=== PATIENT | female | born 1950 | race Caucasian/White ===

== ENCOUNTER 2018-12-30 16:36 | Emergency (ER) | payer MEDICARE ==
[~2018-12-30] VITALS: Ht 147.3 cm; Wt 68.0 kg
--- OUTSIDE RECORDS SUMMARY | 2018-12-30 16:38 | XMS REPORT | Continuity of Care Document ---
Author Author [facility] Organization [facility] Address Unknown Phone Unavailable Care Team Providers Care Flux Tube Attendant Name Role Phone [employer] Information Dianping Unavailable Unavailable Problems Problem Status Onset Date Classification Date Reported Comments Source DX: C50.911=MALIGNANT NEOPLASM OF UNSPEC Active 12/24/2018 [facility] Encounter for screening mammogram for malignant neoplasm of breast 05/14/2018 11/25/2018 [facility] SCREENINGNO PAIN,LUMPS OR DC Active 04/23/2018 [facility] M81.0=AGE-RELATED OSTEOPOROSIS WITHOUT Active 10/19/2017 [facility] Z12.31=ENCOUNTER FOR SCREENING MAMMOGRAM Active 03/14/2017 [facility] SCREENING MAMMOGRAM Active 04/03/2016 [facility] POST MENOPAUSAL Active 10/11/2015 [facility] BREAST CA Active 03/10/2015 [facility] 174.9; BREAST CA Active 04/08/2014 [facility] BREAST CANCER Active 06/09/2013 [facility] BRCA RIGHT Active 04/11/2013 [facility] Abscess of breast1 Active 11/14/2012 Problem 11/25/2018 Data migrated from [employer] on 11/28/14. [facility] BREAST MASS Active 10/30/2012 [facility] RIGHT BREAST CA / POST XRT Active 09/18/2012 [facility] POST MENOPAUSAL, OSTEOPENIA Active 08/07/2012 [facility] 174.9 Active 06/27/2012 [facility] UNK Active 06/27/2012 [facility] Malignant tumor of breast4 Active 06/12/2012 Problem 11/25/2018 Data migrated from [employer] on 11/28/14. [facility] Obesity5 Active 06/12/2012 Problem 11/25/2018 Data migrated from [employer] on 11/28/14. [facility] RIGHT BREAST CA Active 06/12/2012 [facility] RIGHT BREAST MASS Active 06/03/2012 [facility] Diabetes mellitus Active Problem 11/08/2012 [facility] Hypercholesterolemia Active Problem 11/08/2012 [facility] Hypothyroidism Active Problem 11/08/2012 [facility] lump right breast Active Problem 10/07/2014 [facility] Diabetes mellitus Active Problem 11/25/2018 [facility] Hypercholesterolemia Active Problem 10/07/2014 [facility] Hypothyroidism Active Problem 10/07/2014 [facility] Hypercholesterolemia2 Active Problem 11/25/2018 Data migrated from [employer] on 11/28/14. [facility] Hypothyroidism3 Active Problem 11/25/2018 Data migrated from [employer] on 11/28/14. [facility] Type 2 diabetes mellitus6 Active Problem 11/25/2018 Data migrated from [employer] on 11/28/14. [facility] BREAST DISORDER NOS Active [facility] OSTEOPOROSIS NOS Active [facility] MALIGN NEOPL BREAST NOS Active [facility] ASYMPT POSTMENO STATUS Active [facility] MAL CHELA BREAST-CENTRAL Active [facility] MALIGNANT NEOPLASM OF UNSP SITE OF UNSPE Active [facility] AGE-RELATED OSTEOPOROSIS W/O CURRENT PAT Active [facility] ENCNTR SCREEN MAMMOGRAM FOR MALIGNANT NE Active [facility] Medications Medication Details Route Status Patient Instructions Ordering Provider Order Date Source acetaminophen-hydrocodone 325 mg-5 mg oral tablet 1 tab, Route: PO, Drug Form: TAB, Dosing Weight 70.455, kg, Q4H, PRN Pain Score 1-3, Start date: 07/10/12 15:02:00, Duration: 30 day, Stop date: 08/09/12 15:01:00 PO No Longer Active [place] 07/10/2012 [facility] fentanyl 25 microgram, 0.5 mL, Route: IVP, Drug form: INJ, Q5Min, Dosing Weight 70.455, kg, PRN Pain Score 4-6, Start date: 07/10/12 15:02:00, Duration: 4 doses or times, Stop date: Limited # of times IVP No Longer Active [place] 07/10/2012 [facility] flumazenil 0.2 mg, 2 mL, Route: IVP, Drug form: INJ, PRN, Dosing Weight 70.455, kg, PRN Benzodiazepine Reversal, Initial dose, Start date: 07/10/12 15:02:00, Duration: 30 day, Stop date: 08/09/12 15:01:00 IVP No Longer Active [place] 07/10/2012 [facility] naloxone 0.04 mg, 0.1 mL, Route: IVP, Drug form: INJ, Q2MIN, Dosing Weight 70.455, kg, PRN Narcotic Reversal, Start date: 07/10/12 15:02:00, Duration: 8 doses or times, Stop date: Limited # of times IVP No Longer Active [place] 07/10/2012 [facility] hydromorphone 0.5 mg, 0.5 mL, Route: IVP, Drug form: SOLN, Q5Min, Dosing Weight 70.455, kg, PRN Pain Score 4-6, Start date: 07/10/12 15:02:00, Duration: 5 doses or times, Stop date: Limited # of times IVP No Longer Active [place] 07/10/2012 [facility] morphine Sulfate 2 mg, 1 mL, Route: IVP, Drug form: INJ, Q5Min, Dosing Weight 70.455, kg, PRN Pain Score 4-6, Start date: 07/10/12 15:02:00, Duration: 8 doses or times, Stop date: Limited # of times IVP No Longer Active [place] 07/10/2012 [facility] meperidine 12.5 mg, 0.25 mL, Route: IVP, Drug form: INJ, Q30Min, Dosing Weight 70.455, kg, PRN Other -See Comment, For shivering, Start date: 07/10/12 15:02:00, Duration: 2 doses or times, Stop date: Limited # of times IVP No Longer Active [place] 07/10/2012 [facility] ondansetron 4 mg, 2 mL, Route: IVP, Drug form: INJ, ONCE, Dosing Weight 70.455, kg, PRN Nausea & Vomiting, Start date: 07/10/12 15:02:00 IVP No Longer Active [place] 07/10/2012 [facility] [place] 10/325 oral tablet 1 tab, Route: PO, Drug Form: TAB, Dosing Weight 70.455, kg, Q4H, PRN Pain, Start date: 07/10/12 15:02:00, Duration: 30 day, Stop date: 08/09/12 15:01:00 PO No Longer Active [place] 07/10/2012 [facility] Ofirmev 1,000 mg, 100 mL, Route: IV, Drug form: INJ, ONCE, Dosing Weight 70.455, kg, PRN Pain, for > or=50 kg, Start date: 07/10/12 15:02:00 IV No Longer Active [place] 07/10/2012 [facility] [place] 5/325 oral tablet 1-2 tab, PO, Q4-6H, PRN, 20 tab, 0, 0, Pain, Substitution Allowed, Maintenance PO Active Rashid 07/10/2012 [facility] Lactated Ringers Injection IV 1,000 mL 1,000 mL, Rate: 25 ml/hr, Infuse over: 40 hr, Route: IV, kg, Total Volume: 1,000, Start date: 07/10/12 11:51:00, Duration: 1 day, Stop date: 07/11/12 11:50:00 IV No Longer Active [place] 07/10/2012 [facility] cefazolin 2 gm, Route: IVPB, ONCE, Dosing Weight 70.455, kg, Start date: 07/10/12 11:51:00, Duration: 1 doses or times, Stop date: 07/10/12 11:51:00 IVPB No Longer Active Rashid 07/10/2012 [facility] Vitamin B12 1000 mcg oral tablet 1,000 microgram, 1 tab, PO, Daily, 30 tab, Substitution Allowed, TAB PO Active 07/05/2012 [facility] omega-3 polyunsaturated fatty acids 1,500 mg, PO, BID, Substitution Allowed PO Active 07/05/2012 [facility] calcium calcium, 1,200 mg, PO, BID, Substitution Allowed PO Active 07/05/2012 [facility] magnesium chloride PO, Daily, Substitution Allowed PO Active 07/05/2012 [facility] Vitamin C 1,000 mg, PO, BID, Substitution Allowed PO Active 07/05/2012 [facility] gabapentin 300 mg oral capsule 300 mg, 1 cap, PO, Bedtime, prn restless leg, 90 cap, Substitution Allowedprn restless leg PO Active 07/05/2012 [facility] metFORmin 500 mg, PO, Bedtime, Substitution Allowed PO Active 07/05/2012 [facility] simvastatin 40 mg oral tablet 40 mg, 1 tab, PO, Bedtime, 30 tab, Substitution Allowed, Maintenance PO Active 07/05/2012 [facility] doxepin 50 mg oral capsule 50 mg, PO, Bedtime, 30 cap, Substitution Allowed PO Active 07/05/2012 [facility] Synthroid 50 mcg (0.05 mg) oral tablet 75 microgram, 1.5 tab, PO, Q-M-W-F, 30 tab, Substitution Allowed, TAB PO Active 07/05/2012 [facility] Synthroid 50 mcg (0.05 mg) oral tablet 50 microgram, 1 tab, PO, V-Qe-Bd-Sa-Coles, 30 tab, Substitution Allowed, TAB PO Active 07/05/2012 [facility] Budeprion 150 mg oral tablet, extended release 150 mg, 1 tab, PO, Daily, 180 tab, Substitution Allowed, ERTAB PO Active 07/05/2012 [facility] spironolactone 50 mg oral tablet 50 mg, 1 tab, PO, Daily, 180 tab, Substitution Allowed, TAB PO Active 07/05/2012 [facility] citalopram 20 mg oral tablet 20 mg, 1 tab, PO, Daily, 30 tab, Substitution Allowed, TAB PO Active 07/05/2012 [facility] Allergies, Adverse Reactions, Alerts Substance Category Reaction Severity Reaction type Status Date Reported Comments Source No Known Medication Allergies Assertion Drug allergy [facility] Immunizations No Data Provided for This Section Results Order Name Results Value Reference Range Date Interpretation Comments Source BEDSIDE GLUCOSE TESTING Gluc POC Lifscn 112 70 - 99 07/10/2012 [facility] <sup>1</sup>Interpretive Data: Upper Reportable Limit: 200 mg/dL. [facility] CHEMISTRY eGFR 60 07/05/2012 NA <sup>2</sup>Result Comment: The eGFR is calculated using the CKD-EPI formula. In most young, healthy individuals the eGFR will be >90 mL/min/1.73m2. The eGFR declines with age. An eGFR of 60-89 may be normal in some populations, particularly the elderly, for whom the CKD-EPI formula has not been extensively validated. Use of the eGFR is not recommended in the following populations:& lt;br/>
Individuals with unstable creatinine concentrations, including patients and those with serious co-morbid conditions.

Patients with extremes in muscle mass or diet.

The data above are obtained from the National Kidney Disease Education Program (NKDEP) which additionally recommends that when the eGFR is used in patients with extremes of body mass index for purposes of drug dosing, the eGFR should be multiplied by the estimated BMI. [facility] CHEMISTRY CO2 30 24 - 32 07/05/2012 Normal [facility] CHEMISTRY Creatinine Lvl 1.0 0.5 - 1.4 07/05/2012 Normal [facility] CHEMISTRY BUN 13 7 - 22 07/05/2012 Normal [facility] CHEMISTRY Glucose Lvl 95 70 - 99 07/05/2012 Normal <sup>3</sup>Interpretive Data: Adult reference range values reflect the clinical guidelines
of the [place] [employer]. [facility] CHEMISTRY Chloride Lvl 108 95 - 109 07/05/2012 Normal [facility] CHEMISTRY Calcium Lvl 9.7 8.5 - 10.5 07/05/2012 Normal [facility] CHEMISTRY Potassium Lvl 4.1 3.5 - 5.1 07/05/2012 Normal [facility] CHEMISTRY Sodium Lvl 148 135 - 145 07/05/2012 HI [facility] CHEMISTRY AGAP 14.1 10.0 - 20.0 07/05/2012 Normal [facility] HEMATOLOGY MCHC 32.8 32.0 - 36.0 07/05/2012 Normal [facility] HEMATOLOGY RDW 13.3 11.5 - 14.5 07/05/2012 Normal [facility] HEMATOLOGY MCH 31.0 27.0 - 31.0 07/05/2012 Normal [facility] HEMATOLOGY Platelet 234 133 - 450 07/05/2012 Normal [facility] HEMATOLOGY MPV 9.5 7.4 - 10.4 07/05/2012 Normal [facility] HEMATOLOGY Hgb 13.4 12.0 - 16.0 07/05/2012 Normal [facility] HEMATOLOGY Hct 41.0 36.0 - 48.0 07/05/2012 Normal [facility] HEMATOLOGY MCV 94.6 81.0 - 99.0 07/05/2012 Normal [facility] HEMATOLOGY WBC 7.0 3.7 - 10.4 07/05/2012 Normal [facility] HEMATOLOGY RBC 4.33 4.20 - 5.40 07/05/2012 Normal [facility] HEMATOLOGY Monocytes # 0.8 0.0 - 0.8 07/05/2012 Normal [facility] HEMATOLOGY Eosinophils # 0.2 0.0 - 0.5 07/05/2012 Normal [facility] HEMATOLOGY Basophils # 0.0 0.0 - 0.2 07/05/2012 Normal [facility] HEMATOLOGY Basophils 0.6 0.0 - 1.0 07/05/2012 Normal [facility] HEMATOLOGY Segs-Bands # 2.4 1.5 - 8.1 07/05/2012 Normal [facility] HEMATOLOGY Lymphocytes # 3.6 1.0 - 5.5 07/05/2012 Normal [facility] HEMATOLOGY Eosinophils 2.9 0.0 - 4.0 07/05/2012 Normal [facility] HEMATOLOGY Lymphocytes 51.0 20.0 - 40.0 07/05/2012 [facility] HEMATOLOGY Monocytes 11.1 2.0 - 12.0 07/05/2012 Normal [facility] HEMATOLOGY Segs 34.4 45.0 - 75.0 07/05/2012 LOW [facility] Pathology Reports No Data Provided for This Section Diagnostic Reports Report Value Date Source Breast Mammo Scrn [place] w guille incl CAD MA BILATERAL DIGITAL SCREENING MAMMOGRAM 3D/2D WITH CAD: 05/07/2018 CLINICAL: /Routine. Current study was evaluated with a Computer Aided Detection (CAD) system. COMPARISON:Comparison is made to exams dated: 04/18/2017 mammogram, 04/18/2016 mammogram, 04/07/2015 mammogram, 10/05/2014 mammogram, 04/27/2014 mammogram, and 11/03/2013 mammogram - [facility]. TECHNIQUE: Digital Breast Tomosynthesis was performed and utilized for Interpretation. [employer] Version 1.3 was utilized for computer aided detection. FINDINGS: The tissue of both breasts is heterogeneously dense, which could obscure detection of small masses. The patient is status post lumpectomy right breast. There are post operative changes in the right breast. There are stable benign appearing vascular calcifications, calcifications, and densities in both breasts. There also is a biopsy clip in the right breast. No significant masses, calcifications, or other findings are seen in either breast. There has been no significant interval change. IMPRESSION: BENIGN RECOMMENDATION:The patient is status post lumpectomy right breast. There is no mammographic evidence of malignancy. A 1 year screening mammogram is recommended.(05/08/2019) This exam was interpreted at [id number] for [facility]. Farshad Nowak M.D. ap/penrad:05/07/2018 15:28:52 Delinquency Counselor(s): Shirley Rossi, [facility] letter sent: BI-RADS 1/2 Mammogram BI-RADS: 2 Benign 05/07/2018 [facility] Bone Density Scan Study: Bone Density Scan Clinical Indication: - osteoporosis; Images of the axial lumbar spine and left hip have been performed using [facility] Discovery SL scanner. COMPARISON: November 15, 2015 FINDINGS: The left hip bone mineral density is 95% of the peak reference bone mass with a T-score of -0.4. Left hip BMD is 0.893 g/cm2. Left femoral neck BMD is 0.710 g/cm2 and T-score of -1.2. Bone mineral density of the total left hip has increased 0.8% since previous exam. Bone mineral density of the left femoral neck has decreased 2.2% from prior exam. The axial lumbar bone mineral density is 94% of the peak reference bone mass with a T-score -0.6. Axial lumbar average BMD is 0.982 g/cm2. Bone mineral density has decreased 1.1% since previous exam. IMPRESSION: 1. Osteopenia of the left femoral neck. 2. Normal bone mineral density of the total left hip. 3. Normal bone mineral density of the lumbar spine. The World Health Organization has established that OSTEOPOROSIS occurs at -2.5 or more standard deviations (SD) below peak bone mass (T-score on the Hologic report). OSTEOPENIA (low bone mass) occurs at greater than -1.0 standard deviations to -2.5 standard deviations below peak bone mass. SL: [id number] 11/12/2017 [facility] Breast Mammo Scrn [place] w guille incl CAD MA BILATERAL DIGITAL SCREENING MAMMOGRAM 3D/2D WITH CAD: 04/18/2017 CLINICAL: /Screen. Current study was evaluated with a Computer Aided Detection (CAD) system. COMPARISON:Comparison is made to exams dated: 04/18/2016 mammogram, 04/07/2015 mammogram, 10/05/2014 mammogram, 04/27/2014 mammogram, 11/03/2013 mammogram, and 04/28/2013 mammogram - [facility]. TECHNIQUE: Digital Breast Tomosynthesis was performed and utilized for Interpretation. [employer] Version 1.3 was utilized for computer aided detection. The tissue of both breasts is heterogeneously dense, which could obscure detection of small masses. FINDINGS: The patient is status post lumpectomy right breast. There are post operative and radiation changes in the right breast. There are benign vascular calcifications, calcifications, and densities in both breasts. There also is a biopsy clip in the right breast. No significant masses, calcifications, or other findings are seen in either breast. There has been no significant interval change. IMPRESSION: BENIGN RECOMMENDATION:The patient is status post lumpectomy right breast. There is no mammographic evidence of malignancy. A 1 year screening mammogram is recommended.(04/19/2018) This exam was interpreted at [id number] for [facility]. Vineet gonzalezt/penrad:04/18/2017 16:00:38 Delinquency Counselor(s): Cheyanne Panda, [facility] letter sent: BI-RADS 1/2 Mammogram BI-RADS: 2 Benign 04/18/2017 [facility] Digital Mammo Screening [place] - DIGITAL MAMMO SCREENING [place] BILATERAL DIGITAL SCREENING MAMMOGRAM WITH CAD: 04/18/2016 CLINICAL: Routine Breast Cancer history right IDC s/p lumpectomy Jul 2012 with XRT. Current study was evaluated with a Computer Aided Detection (CAD) system. Comparison is made to exams dated: 04/07/2015 mammogram, 10/05/2014 mammogram, 04/27/2014 mammogram, 11/03/2013 mammogram, 04/28/2013 mammogram and 11/06/2012 mammogram - [facility]. The tissue of both breasts is heterogeneously dense, which could obscure detection of small masses. The patient is status post lumpectomy right breast. There are post operative and radiation changes in the right breast. There are benign vascular calcifications and calcifications in both breasts. There also are benign densities in both breasts. Additionally there is a biopsy clip in the right breast. No significant masses, calcifications, or other findings are seen in either breast. There has been no significant interval change. IMPRESSION: BENIGN The patient is status post lumpectomy right breast. There is no mammographic evidence of malignancy. A 1 year screening mammogram is recommended. Vineet villagran/penrad:04/19/2016 07:55:16 Delinquency Counselor: Shirley Rossi, [facility] This exam was dictated and interpreted by [id number] for [facility]. letter sent: Normal [place] Mammogram BI-RADS: 2 Benign 04/18/2016 [facility] Bone Density Scan Patient Name: FAITH ACEVEDO : 1950; Age: 65 years y/o Female MR: [id number] Study: Bone Density Scan 11/15/2015 2:42 PM CDT Clinical Indication: menopausal. COMPARISON: 11/03/2013 FINDINGS: The axial lumbar bone mineral density is 95% of the expected age matched bone mass with a T-score -0.5. Axial lumbar average BMD is 0.99 g/cm2. This is increased 3.9% when compared to the prior exam. The left femoral neck bone mineral density is 86% of the expected age matched bone mass with a T-score of -1.1. Left femoral neck BMD is 0.73 g/cm2. The total femoral BMD is 0.89 g/cm2. This is increased 0.7% when compared to the prior exam. IMPRESSION: 1. Normal bone mineral density of the lumbar spine. 2. Osteopenia of the left femoral neck. The World Health Organization has established that OSTEOPOROSIS occurs at -2.5 or more standard deviations (SD) below peak bone mass. OSTEOPENIA (low bone mass) occurs at -1.0 standard deviations to -2.5 standard deviations below peak bone mass. SL: [id number] 11/15/2015 [facility] Digital Mammo DX [place] - DIGITAL MAMMO DX [place] BILATERAL DIGITAL DIAGNOSTIC MAMMOGRAM WITH CAD: 04/07/2015 CLINICAL: Breast Cancer right IDC s/p lumpectomy Jul 2012 with XRT. Current study was evaluated with a Computer Aided Detection (CAD) system. Comparison is made to exams dated: 10/05/2014 mammogram, 04/27/2014 mammogram, 11/03/2013 mammogram, 04/28/2013 mammogram, 11/06/2012 mammogram and 07/10/2012 specimen - [facility]. The tissue of both breasts is heterogeneously dense, which could obscure detection of small masses. The patient is status post lumpectomy right breast. There are post operative and radiation changes in the right breast. There are benign vascular calcifications and calcifications in both breasts. There also are benign densities in both breasts. Additionally there is a biopsy clip in the right breast. No significant masses, calcifications, or other findings are seen in either breast. There has been no significant interval change. IMPRESSION: BENIGN The patient is status post lumpectomy right breast. There is no mammographic evidence of malignancy. A 1 year screening mammogram is recommended. The results were reviewed with the patient. Vineet villagran/pensean:04/07/2015 15:16:53 Delinquency Counselor: Stefani Castillo, [facility] This exam was dictated and interpreted by [id number] for [facility]. letter sent: Normal exam Mammogram BI-RADS: 2 Benign 04/07/2015 [facility] Digital Mammo DX Uni MA - DIGITAL MAMMO DX UNI MA/R UNILATERAL RIGHT DIGITAL DIAGNOSTIC MAMMOGRAM WITH CAD: 10/05/2014 CLINICAL: Hx Of Breast Cancer right IDC s/p lumpectomy Jul 2012 with XRT. Current study was evaluated with a Computer Aided Detection (CAD) system. Comparison is made to exams dated: 04/27/2014 mammogram, 11/03/2013 mammogram, 04/28/2013 mammogram, 11/06/2012 mammogram, 07/10/2012 mammogram and 07/10/2012 localization - [facility]. The tissue of the right breast is heterogeneously dense, which could obscure detection of small masses. The patient is status post lumpectomy right breast. There are post operative and radiation changes in the right breast. There are benign vascular calcifications and calcifications in the right breast. There also are benign densities in the right breast. Additionally there is a biopsy clip in the right breast. No significant masses, calcifications, or other findings are seen in the breast. There has been no significant interval change. IMPRESSION: BENIGN The patient is status post lumpectomy right breast. There is no mammographic evidence of malignancy. Return to annual mammogram screening schedule is recommended. The results were reviewed with the patient. Vineet villagran/penrad:10/05/2014 14:50:32 Delinquency Counselor: Stefani Castillo, [facility] This exam was dictated and interpreted by [id number] for [facility] [place]. letter sent: Normal exam Mammogram BI-RADS: 2 Benign 10/05/2014 [facility] Chest 2 views CHEST RADIOGRAPH 2 VIEWS INDICATION: Breast cancer COMPARISON: Chest radiograph 06/12/2013 FINDINGS: There is no consolidation, pleural effusion, or pneumothorax. No suspicious pulmonary nodules are identified. The cardiomediastinal silhouette and pulmonary vasculature are within normal limits. No acute bony abnormalities are seen. IMPRESSION: No acute intrathoracic abnormalities or metastatic disease are visualized. SL: 16 04/27/2014 [facility] Breast US - BREAST US/R ULTRASOUND OF RIGHT BREAST: 04/27/2014 CLINICAL: Lumpectomy. Comparison is made to exams dated: 04/27/2014 mammogram, 11/03/2013 mammogram, 04/28/2013 mammogram, 11/06/2012 mammogram, 11/06/2012 ultrasound biopsy and 10/30/2012 ultrasound - [facility]. Color flow and real-time ultrasound of the right breast were performed. Palmer scale images of the real-time examination were reviewed. There are post operative changes and a lumpectomy cavity right breast in the upper outer quadrant that correlate with mammography. There also is an irregular, stable, biopsied area of inflammation and fibrosis in the right breast at 8 o'clock that correlates with mammography and prior biopsy site. There has been no significant interval change. IMPRESSION: NEGATIVE - FOLLOW-UP RECOMMENDED There is no sonographic evidence of malignancy. A follow-up mammogram and possible ultrasound in 6 months is recommended to demonstrate stability. SUMMARY: A follow-up right diagnostic mammogram with possible ultrasound in 6 months is recommended to demonstrate stability given the patient's history of prior lumpectomy. Vineet Massey M.D. jt/:04/27/2014 15:57:47 Delinquency Counselor: Bassam Garcia, [facility] This exam was dictated and interpreted by [id number] for [facility]. letter sent: Normal/AbHistory Ultrasound BI-RADS: 1 Negative 04/27/2014 [facility] Digital Mammo DX Leno MA - DIGITAL MAMMO DX L[place] MA BILATERAL DIGITAL DIAGNOSTIC MAMMOGRAM WITH CAD: 04/27/2014 CLINICAL: Breast Cancer Follow Up right IDC s/p lumpectomy Jul 2012 with XRT. Current study was evaluated with a Computer Aided Detection (CAD) system. Comparison is made to exams dated: 11/03/2013 mammogram, 04/28/2013 mammogram, 11/06/2012 mammogram, 07/10/2012 mammogram, 06/05/2012 mammogram and 11/06/2012 ultrasound biopsy - [facility]. The tissue of both breasts is heterogeneously dense, which could obscure detection of small masses. The patient is status post lumpectomy right breast. There are post operative and radiation changes in the right breast. There are benign vascular calcifications and calcifications in both breasts. There also are benign densities in both breasts. Additionally there is a biopsy clip in the right breast. No significant masses, calcifications, or other findings are seen in either breast. There has been no significant interval change. IMPRESSION: INCOMPLETE: NEEDS ADDITIONAL IMAGING EVALUATION The patient is status post lumpectomy right breast. Ultrasound evaluation is pending. SUMMARY: Right breast ultrasound has been requested and will be performed at this time. Vineet gonzalezt/penrad:04/27/2014 15:49:41 Delinquency Counselor: Gloria Roberts, [facility] This exam was dictated and interpreted by [id number] for [facility]. Mammogram BI-RADS: 0 Indeterminate 04/27/2014 [facility] Chest 2 views PROCEDURE: Chest 2 views REASON FOR EXAM: See Clinic Indication CLINICAL INDICATION: Breast Cancer COMPARISON: 07/15/2008. FINDINGS: No acute process. No focal consolidation, pleural effusion, or pneumothorax. Stable cardiac silhouette and mediastinum. 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 Current study was evaluated with a Computer Aided Detection (CAD) system. Comparison is made to exams dated: 11/06/2012 mammogram, 07/10/2012 mammogram, 06/05/2012 mammogram, 06/03/2012 mammogram - [facility], 07/23/2009 mammogram and 01/22/2008 mammogram. The tissue of both breasts is heterogeneously dense. This may lower the sensitivity of mammography. The patient is status post lumpectomy right breast. There are post operative and radiation changes in the right breast. There are benign vascular calcifications and calcifications in both breasts. There also are benign densities in the right breast. Additionally there is a biopsy clip in the right breast. No significant masses, calcifications, or other findings are seen in either breast. There has been no significant interval change. IMPRESSION: BENIGN The patient is status post lumpectomy right breast. There is no mammographic evidence of malignancy. A follow-up mammogram and an ultrasound in 6 months is recommended to demonstrate stability. SUMMARY: A follow-up right diagnostic mammogram in 6 months is recommended to demonstrate stability given the patient's history of prior lumpectomy. Vineet villagran/penrad:04/28/2013 14:26:43 Delinquency Counselor: Armida Dickerson, [facility] This exam was dictated and interpreted by [id number] at [facility], 13. letter sent: Normal exam Mammogram BI-RADS: 2 Benign 04/28/2013 [facility] Digital Mammo DX Uni MA - DIGITAL MAMMO DX UNI MA/R UNILATERAL RIGHT DIGITAL DIAGNOSTIC MAMMOGRAM WITH CAD POST-PROCEDURE IMAGING FOR MARKER PLACEMENT: 11/06/2012 CLINICAL: Post biopsy clip confirmation mammogram. Current study was evaluated with a Computer Aided Detection (CAD) system. Comparison is made to exams dated: 07/10/2012 mammogram, 06/05/2012 mammogram, 06/03/2012 mammogram, 11/06/2012 ultrasound biopsy and 10/30/2012 ultrasound - [facility]. The tissue of the right breast is heterogeneously dense. This may lower the sensitivity of mammography. Post procedure digital mammogram demonstrates the biopsy clip in appropriate position. No other significant interval change. Known abscess at the prior lumpectomy site demonstrated by prior ultrasound is noted in the posterior upper outer breast. There are benign vascular calcifications and calcifications in the right breast. There also are benign densities in the right breast. IMPRESSION: POST PROCEDURE MAMMOGRAM FOR MARKER PLACEMENT Biopsy clip is in appropriate position. Please see biopsy report for further details. Follow-up with ACR/ACS guidelines. SUMMARY: SL: 13. Vineet villagran/:11/06/2012 10:32:13 Delinquency Counselor: Cheyanne Panda, [facility] Mammogram BI-RADS: Post-procedure mammogram for marker placement 11/06/2012 [facility] Breast biopsy US guided - BREAST BIOPSY US GUIDED/R ULTRASOUND GUIDED BIOPSY RIGHT BREAST WITH MARKING DEVICE INSERTED AND POST DIGITAL MAMMOGRAPHIC AND ULTRASOUND IMAGIN11/06/2012 CLINICAL: Mass 8clk 1cfn. PATIENT CONSENT: Oral and written informed consent was obtained. Risks, benefits, and alternatives were discussed with the patient. Risks include but are not limited to pain, infection, bleeding, incomplete procedure, repeat procedure, pneumothorax, damage to surrounding tissues, and allergic reaction. The patient understands the plan and wishes to proceed. A time out was performed immediately prior to the procedure. Correlation is made to exams dated: 10/30/2012 ultrasound, 07/10/2012 mammogram, 07/10/2012 localization, 06/05/2012 mammogram, 06/05/2012 ultrasound biopsy and 06/03/2012 ultrasound - [facility]. An ultrasound guided biopsy using real-time ultrasound was performed for the concerning palpable 3.2 cm indistinct irregular shaped mass located in the right breast at 8 o'clock posterior depth 1 cm from the nipple. This was described on the previous ultrasound report. The skin was prepped in the usual manner. 10 ccs of 1% lidocaine was administered during the procedure. A skin juan was made in the breast. The abnormality was approached from the caudocranial aspect. A 12 gauge biopsy needle was placed adjacent to the abnormality under ultrasound guidance. Once the needle was documented to be in the correct location, three cores were obtained using the vacuum assisted Pathable EnCor Enspire device. A Gel Manuel UltraCor S shaped clip was inserted into the biopsy cavity. A skin adhesiv e and a sterile dressing were applied to the access site. Post procedure digital mammographic and ultrasound imaging demonstrates the clip at the targeted area. The specimens were sent to the laboratory for pathological analysis. IMPRESSION: ULTRASOUND GUIDED BIOPSY BENIGN Ultrasound guided biopsy of the 3.2 cm mass in the right breast at 8 o'clock posterior depth 1 cm from the nipple was successful with no apparent post procedure complications. Pathology indicates benign 'Breast parenchyma showing stromal fibrosis and focal ductal chronic inflammation'. Pathology results are concordant with imaging findings. A surgical consult and possible excision may be beneficial as the patient states this is a palpable finding. Clinical correlation is needed. She will also be following up with her physician and surgeon for her known right breast abscess/infection. A follow-up right diagnostic mammogram and possible ultrasound of the biopsied breast in 6 months is recommended to demonstrate stability. SL: 13. Vineet villagran/:11/08/2012 11:32:32 Delinquency Counselor: Rafia Dominguez, [facility] letter sent: Bx Results 11/06/2012 [facility] Consultation Notes No Data Provided for This Section Discharge Summaries No Data Provided for This Section History and Physicals No Data Provided for This Section Vital Signs Vital Sign Value Date Comments Source Systolic (mm Hg) 114 07/10/2012 [facility] Diastolic (mm Hg) 55 07/10/2012 [facility] Systolic (mm Hg) 117 07/10/2012 [facility] Diastolic (mm Hg) 58 07/10/2012 [facility] Diastolic (mm Hg) 63 07/10/2012 [facility] Systolic (mm Hg) 123 07/10/2012 [facility] Respitory Rate 17 07/10/2012 [facility] Respitory Rate 16 07/10/2012 [facility] Respitory Rate 17 07/10/2012 [facility] Heart Rate 86 07/10/2012 [facility] Temperature Oral (F) 97.7 F 07/05/2012 [facility] Heart Rate 85 07/05/2012 [facility] Weight 70.455 07/05/2012 [facility] Height 147.32 cm 07/05/2012 [facility] Encounters Location Location Details Encounter Type Encounter Number Reason For Visit Attending Provider ADM Date DC Date Status Source [facility] [id number] RIGHT BREAST MASS WILL ABBASI 06/05/2012 06/05/2012 Active [facility] [id number] RIGHT BREAST CA PHILIPP RASHID 06/18/2012 Active [facility] [id number] 174.9 DEIRDRE YOLANDA 06/20/2012 Active [facility] [id number] BREAST CANCER ELVIA LINDSEY 07/04/2012 Active [facility] DS [id number] 174.9 PHILIPP RASHID 07/10/2012 07/10/2012 Active [facility] [place] [id number] BREAST CANCER ELVIA LINDSEY 08/01/2012 Active [facility] [id number] POST MENOPAUSAL, OSTEOPENIA DEIRDRE CALVILLO-COBY 08/16/2012 Active [facility] [place] [id number] BREAST CANCER ELVIA LINDSEY 09/02/2012 Active [facility] [id number] BREAST CANCER ELVIA LINDSEY 10/28/2012 Active [facility] [id number] BREAST MASS ELVIA LINDSEY 11/06/2012 11/06/2012 Active [facility] [id number] DEIRDRE CALVILLO-COBY 04/28/2013 04/28/2013 Discharged [facility] [id number] BREAST CANCER DEIRDRE CALVILLO-COBY 06/12/2013 Active [facility] [id number] Deirdre Calvillo-Coby 04/27/2014 04/28/2014 [facility] Outpatient [id number] Deirdre Pavonam-Jiwa 10/05/2014 10/06/2014 [facility] Outpatient [id number] Deirdre Calvillo-Coby 04/07/2015 04/08/2015 [facility] Outpatient [id number] Deirdre BolesCoby 11/15/2015 11/16/2015 [facility] Outpatient [id number] Deirdre LibradonaunRhiannon 04/18/2016 04/19/2016 [facility] Outpatient [id number] Deirdre BolesCoby 04/18/2017 04/19/2017 [facility] Outpatient [id number] Deirdre LibradonaunRhiannon 11/12/2017 11/13/2017 [facility] Outpatient [id number] Deirdre BolesCoby 05/07/2018 05/08/2018 [facility] Outpatient [id number] RIGHT BREAST CA / POST XRT ELVIA Rasheed [facility] Procedures Procedure Code Date Perfomer Comments Source Excision of duodenal atresia <sup>1</sup> [id number] 1at [facility] Excision of duodenal atresia<sup>1</sup> [id number] at [facility] Assessment and Plan No Data Provided for This Section Plan of Care No Data Provided for This Section Social History Social History Date Source No data available for this section 05/08/2018 [facility] Family History No Data Provided for This Section Advance Directives No Data Provided for This Section Functional Status No Data Provided for This Section
--- OUTSIDE RECORDS SUMMARY | 2018-12-30 16:39 | XMS REPORT | Summary of Care ---
Author Organization Unknown Address Unknown Phone Unavailable Encounter HQ Encntr_chetna(COOPER) [id number] Date(s): 04/27/14 - 04/27/14 [facility] [address] Discharge Disposition: Home Physician Attending: Deirdre Bhakta DO Physician_Referring: Deirdre Bhakta DO Reason for Visit 174.9; BREAST CA Problem List Condition Effective Dates Status Health Status Informant Diabetes Active mellitus(Confirmed) Hypercholesterolemia Active (Confirmed) Hypothyroidism(Confi Active rmed) lump right Active breast(Confirmed) Allergies, Adverse Reactions, Alerts Substance Reaction Severity Status NKDA Active Medications No data available for this section Medications Administered During Your Visit No data available for this section Immunizations No data available for this section
--- OUTSIDE RECORDS SUMMARY | 2018-12-30 16:39 | XMS REPORT | Summary of Care ---
Author Author [facility] Organization [facility] Address Unknown Phone Unavailable Encounter JOHN More(COOPER) [id number] Date(s): 11/12/17 - 11/12/17 [facility] [address] [place] [address]- Discharge Disposition: Home or Self Care Attending Physician: Deirdre Bhakta DO Referring Physician: Deirdre Bhakta DO Vital Signs No data available for this section Problem List Condition Effective Dates Status Health Status Informant Abscess of breast1 11/14/12 Active Diabetes Active mellitus(Confirmed) Hypercholesterolemia Active 2 Hypothyroidism3 Active Malignant tumor of 06/12/12 Active breast4 Obesity5 06/12/12 Active Type 2 diabetes Active mellitus6 1Data migrated from [employer] on 11/28/14. 2Data migrated from [employer] on 11/28/14. 3Data migrated from [employer] on 11/28/14. 4Data migrated from [employer] on 11/28/14. 5Data migrated from [employer] on 11/28/14. 6Data migrated from [employer] on 11/28/14. Allergies, Adverse Reactions, Alerts Substance Reaction Severity Status NKDA Active Medications No data available for this section Results No data available for this section Immunizations No data available for this section Procedures Procedure Date Related Diagnosis Body Site Status Excision of duodenal atresia1 Completed 1at Social History No data available for this section Assessment and Plan No data available for this section
--- OUTSIDE RECORDS SUMMARY | 2018-12-30 16:39 | XMS REPORT | CCD ---
Author Author Auto Generated Organization [facility] Address Unknown Phone Unavailable Care Team Providers Care Child Support Officer Name Role Phone Haris Myers CP Dean Rashid RP Allergies, Adverse Reactions, Alerts Substance Reaction Status NKDA Active Problem List Condition Effective Dates Status Diabetes mellitus Active Hypercholesterolemia Active Hypothyroidism Active lump right breast Active
--- OUTSIDE RECORDS SUMMARY | 2018-12-30 16:39 | XMS REPORT | CCD ---
Author Author Auto Generated Organization [facility] Address Unknown Phone Unavailable Care Team Providers Care Parts Department Supervisor Name Role Phone Haris Myers RP Allergies, Adverse Reactions, Alerts Substance Reaction Status NKDA Active Problem List Condition Effective Dates Status Diabetes mellitus Active Hypercholesterolemia Active Hypothyroidism Active lump right breast Active
--- OUTSIDE RECORDS SUMMARY | 2018-12-30 16:39 | XMS REPORT | CCD ---
Author Author Auto Generated Organization [facility] Address Unknown Phone Unavailable Care Team Providers Care Journeyman Lineman Name Role Phone Haris Myers RP Allergies, Adverse Reactions, Alerts Substance Reaction Status NKDA Active Problem List Condition Effective Dates Status Diabetes mellitus Active Hypercholesterolemia Active Hypothyroidism Active lump right breast Active
--- OUTSIDE RECORDS SUMMARY | 2018-12-30 16:39 | XMS REPORT | Summary of Care ---
Author Author [facility] Organization [facility] Address Unknown Phone Unavailable Encounter HQ Argenis(FIN) [id number] Date(s): 05/07/18 - 05/07/18 [facility] [address] [place] [address]- [phone] Encounter Diagnosis Encounter for screening mammogram for malignant neoplasm of breast (Final) - 05/13/18 Discharge Disposition: Home or Self Care Attending [...] [employer] on 11/28/14. Allergies, Adverse Reactions, Alerts No Known Medication Allergies Medications No data available for this section Results No data available for this section Immunizations No data available for this section Procedures Procedure Date Related Diagnosis Body Site Status Excision of duodenal atresia1 Completed 1at Social History No data available for this section Assessment and Plan No data available for this section
--- OUTSIDE RECORDS SUMMARY | 2018-12-30 16:39 | XMS REPORT | Summary of Care ---
Author Author [facility] Organization [facility] Address Unknown Phone Unavailable Encounter HQ Matty_chetna(COOPER) [id number] Date(s): 04/18/17 - 04/18/17 [facility] [address] [place] [address]- Discharge Disposition: Home or Self Care Attending [...] Procedures Procedure Date Related Diagnosis Body Site Excision of duodenal atresia1 1at Social History No data available for this section Assessment and Plan No data available for this section
--- OUTSIDE RECORDS SUMMARY | 2018-12-30 16:39 | XMS REPORT | CCD ---
Author Author Auto Generated Organization [facility] Address Unknown Phone Unavailable Care Team Providers Care Knot Picker Cloth Name Role Phone Haris Myers CP Dean Rashid RP Allergies, Adverse Reactions, Alerts Substance Reaction Status NKDA Active Problem List Condition Effective Dates Status Diabetes mellitus Active Hypercholesterolemia Active Hypothyroidism Active lump right breast Active
--- OUTSIDE RECORDS SUMMARY | 2018-12-30 16:39 | XMS REPORT | CCD ---
Author Author Auto Generated Organization [facility] Address Unknown Phone Unavailable Care Team Providers Care Proof Machine Operator Name Role Phone Deirdre Bhakta RP Allergies, Adverse Reactions, Alerts Substance Reaction Status NKDA Active Problem List Condition Effective Dates Status Diabetes mellitus Active Hypercholesterolemia Active Hypothyroidism Active lump right breast Active
--- OUTSIDE RECORDS SUMMARY | 2018-12-30 16:39 | XMS REPORT | CCD ---
Author Author Auto Generated Organization [facility] Address Unknown Phone Unavailable Care Team Providers Care Cook Barbecue Name Role Phone Haris Myers CP Dean Rashid RP Allergies, Adverse Reactions, Alerts Substance Reaction Status NKDA Active Problem List Condition Effective Dates Status Diabetes mellitus Active Hypercholesterolemia Active Hypothyroidism Active lump right breast Active
--- OUTSIDE RECORDS SUMMARY | 2018-12-30 16:39 | XMS REPORT | Summary of Care ---
Author Organization Unknown Address Unknown Phone Unavailable Encounter HQ Madyntr_chetna(COOPER) [id number] Date(s): 10/05/14 - 10/05/14 [facility] [address] [place] [address]- [phone] Discharge Disposition: Home Physician Attending: Deirdre Bhakta DO Physician_Referring: Deirdre Bhakta DO Vital Signs No data [...]
--- OUTSIDE RECORDS SUMMARY | 2018-12-30 16:39 | XMS REPORT | CCD ---
Author Author Auto Generated Organization [facility] Address Unknown Phone Unavailable Care Team Providers Care Printing Grey Cloth Tender Name Role Phone Dean Rashid RP Allergies, Adverse Reactions, Alerts Substance Reaction Status NKDA Active Problem List Condition Effective Dates Status Diabetes mellitus Active Hypercholesterolemia Active Hypothyroidism Active lump right breast Active Medications Medication Instructions Start Date End Date Status Vitamin B12 1000 mcg 1,000 microgram, 1 tab, PO, Daily, 07/05/2012 Ordered oral tablet 30 tab, Substitution Allowed, TAB acetaminophen-hydroc 1 tab, Route: PO, Drug Form: TAB, 07/10/2012 07/10/2012 Discontinued odone 325 mg-5 mg Dosing Weight 70.455, kg, Q4H, PRN oral tablet Pain Score 1-3, Start date: 07/10/12 15:02:00, Duration: 30 day, Stop date: 08/09/12 15:01:00 fentanyl 25 microgram, 0.5 mL, Route: IVP, 07/10/2012 07/10/2012 Discontinued Drug form: INJ, Q5Min, Dosing Weight 70.455, kg, PRN Pain Score 4-6, Start date: 07/10/12 15:02:00, Duration: 4 doses or times, Stop date: Limited # of times flumazenil 0.2 mg, 2 mL, Route: IVP, Drug 07/10/2012 07/10/2012 Discontinued form: INJ, PRN, Dosing Weight 70.455, kg, PRN Benzodiazepine Reversal, Initial dose, Start date: 07/10/12 15:02:00, Duration: 30 day, Stop date: 08/09/12 15:01:00 naloxone 0.04 mg, 0.1 mL, Route: IVP, Drug 07/10/2012 07/10/2012 Discontinued form: INJ, Q2MIN, Dosing Weight 70.455, kg, PRN Narcotic Reversal, Start date: 07/10/12 15:02:00, Duration: 8 doses or times, Stop date: Limited # of times hydromorphone 0.5 mg, 0.5 mL, Route: IVP, Drug 07/10/2012 07/10/2012 Discontinued form: SOLN, Q5Min, Dosing Weight 70.455, kg, PRN Pain Score 4-6, Start date: 07/10/12 15:02:00, Duration: 5 doses or times, Stop date: Limited # of times morphine Sulfate 2 mg, 1 mL, Route: IVP, Drug form: 07/10/2012 07/10/2012 Discontinued INJ, Q5Min, Dosing Weight 70.455, kg, PRN Pain Score 4-6, Start date: 07/10/12 15:02:00, Duration: 8 doses or times, Stop date: Limited # of times meperidine 12.5 mg, 0.25 mL, Route: IVP, Drug 07/10/2012 07/10/2012 Discontinued form: INJ, Q30Min, Dosing Weight 70.455, kg, PRN Other -See Comment, For shivering, Start date: 07/10/12 15:02:00, Duration: 2 doses or times, Stop date: Limited # of times ondansetron 4 mg, 2 mL, Route: IVP, Drug form: 07/10/2012 07/10/2012 Discontinued INJ, ONCE, Dosing Weight 70.455, kg, PRN Nausea & Vomiting, Start date: 07/10/12 15:02:00 [place] 10/325 oral 1 tab, Route: PO, Drug Form: TAB, 07/10/2012 07/10/2012 Discontinued tablet Dosing Weight 70.455, kg, Q4H, PRN Pain, Start date: 07/10/12 15:02:00, Duration: 30 day, Stop date: 08/09/12 15:01:00 Ofirmev 1,000 mg, 100 mL, Route: IV, Drug 07/10/2012 07/10/2012 Discontinued form: INJ, ONCE, Dosing Weight 70.455, kg, PRN Pain, for > or=50 kg, Start date: 07/10/12 15:02:00 Lactated Ringers 1,000 mL, Rate: 25 ml/hr, Infuse 07/10/2012 07/10/2012 Discontinued Injection IV 1,000 over: 40 hr, Route: IV, kg, Total mL Volume: 1,000, Start date: 07/10/12 11:51:00, Duration: 1 day, Stop date: 07/11/12 11:50:00 [place] 5/325 oral 1-2 tab, PO, Q4-6H, PRN, 20 tab, 0, 07/10/2012 07/15/2012 Ordered tablet 0, Pain, Substitution Allowed, Maintenance Synthroid 50 mcg 75 microgram, 1.5 tab, PO, Q---, 07/05/2012 Ordered (0.05 mg) oral 30 tab, Substitution Allowed, TAB tablet magnesium chloride PO, Daily, Substitution Allowed 07/05/2012 Ordered cefazolin 2 gm, Route: IVPB, ONCE, Dosing 07/10/2012 07/10/2012 Completed Weight 70.455, kg, Start date: 07/10/12 11:51:00, Duration: 1 doses or times, Stop date: 07/10/12 11:51:00 Synthroid 50 mcg 50 microgram, 1 tab, PO, 07/05/2012 Ordered (0.05 mg) oral B-Wi-Yd-Coles, 30 tab, Substitution tablet Allowed, TAB Vitamin C 1,000 mg, PO, BID, Substitution 07/05/2012 Ordered Allowed omega-3 1,500 mg, PO, BID, Substitution 07/05/2012 Ordered polyunsaturated Allowed fatty acids Budeprion 150 mg 150 mg, 1 tab, PO, Daily, 180 tab, 07/05/2012 Ordered oral tablet, Substitution Allowed, ERTAB extended release spironolactone 50 mg 50 mg, 1 tab, PO, Daily, 180 tab, 07/05/2012 Ordered oral tablet Substitution Allowed, TAB citalopram 20 mg 20 mg, 1 tab, PO, Daily, 30 tab, 07/05/2012 Ordered oral tablet Substitution Allowed, TAB gabapentin 300 mg 300 mg, 1 cap, PO, Bedtime, prn 07/05/2012 Ordered oral capsule restless leg, 90 cap, Substitution Allowed prn restless leg calcium calcium, 1,200 mg, PO, BID, 07/05/2012 Ordered Substitution Allowed metFORmin 500 mg, PO, Bedtime, Substitution 07/05/2012 Ordered Allowed simvastatin 40 mg 40 mg, 1 tab, PO, Bedtime, 30 tab, 07/05/2012 08/04/2012 Ordered oral tablet Substitution Allowed, Maintenance doxepin 50 mg oral 50 mg, PO, Bedtime, 30 cap, 07/05/2012 Ordered capsule Substitution Allowed Vital Signs Most recent to oldest [Reference Range]: 1 2 3 Height 147.32 cm (07/05/2012 08:28:00) Temperature Oral [96.4-99.1 DegF] 97.7 DegF (07/05/2012 09:36:00) Systolic Blood Pressure [90-140 mmHg] 114 mmHg (07/10/2012 17:00:00) 117 mmHg (07/10/2012 16:45:00) 123 mmHg (07/10/2012 16:30:00) Diastolic Blood Pressure [60-90 mmHg] 55 mmHg *LOW* (07/10/2012 17:00:00) 58 mmHg *LOW* (07/10/2012 16:45:00) 63 mmHg (07/10/2012 16:30:00) Respiratory Rate [14-20 BRMIN] 17 BRMIN (07/10/2012 15:45:00) 16 BRMIN (07/10/2012 15:30:00) 17 BRMIN (07/10/2012 15:15:00) Peripheral Pulse Rate [60-100 bpm] 86 bpm (07/10/2012 11:57:00) 85 bpm (07/05/2012 09:36:00) Weight 70.455 kg (07/05/2012 08:28:00) Results BEDSIDE GLUCOSE TESTING Most recent to oldest [Reference Range]: 1 Gluc POC Lifscn [70-99 mg/dL] 112 mg/dL 1 *HI* (07/10/2012 11:45:00) 1Interpretive Data: Upper Reportable Limit: 200 mg/dL. CHEMISTRY Most recent to oldest [Reference Range]: 1 Sodium Lvl [135-145 mEq/L] 148 mEq/L *HI* (07/05/2012 09:30:00) Potassium Lvl [3.5-5.1 mEq/L] 4.1 mEq/L (07/05/2012 09:30:00) Chloride Lvl [95-109 mEq/L] 108 mEq/L (07/05/2012 09:30:00) CO2 [24-32 mEq/L] 30 mEq/L (07/05/201230:00) AGAP [10.0-20.0 mEq/L] 14.1 mEq/L (07/05/2012:00) Creatinine Lvl [0.5-1.4 mg/dL] 1.0 mg/dL (07/05/2012:00) eGFR 60 mL/min/1.73m2 2 *NA* (07/05/2012) BUN [7-22 mg/dL] 13 mg/dL (07/05/2012:00) Glucose Lvl [70-99 mg/dL] 95 mg/dL 3 (07/05/2012:00) Calcium Lvl [8.5-10.5 mg/dL] 9.7 mg/dL (07/05/2012:00) 2Result Comment: The eGFR is calculated using the CKD-EPI formula. In most young, healthy individuals the eGFR will be >90 mL/min/1.73m2. The eGFR declines with age. An eGFR of 60-89 may be normal in some populations, particularly the elderly, for whom the CKD-EPI formula has not been extensively validated. Use of the eGFR is not recommended in the following populations: Individuals with unstable creatinine concentrations, including patients and those with serious co-morbid conditions. Patients with extremes in muscle mass or diet. The data above are obtained from the National Kidney Disease Education Program ( NKDEP) which additionally recommends that when the eGFR is used in patients with extremes of body mass index for purposes of drug dosing, the eGFR should be mul tiplied by the estimated BMI. 3Interpretive Data: Adult reference range values reflect the clinical guidelines of the [place] [employer]. HEMATOLOGY Most recent to oldest [Reference Range]: 1 WBC [3.7-10.4 K/CMM] 7.0 K/CMM (07/05/2012:00) RBC [4.20-5.40 M/CMM] 4.33 M/CMM (07/05/2012:00) Hgb [12.0-16.0 g/dL] 13.4 g/dL (07/05/2012:00) Hct [36.0-48.0 %] 41.0 % (07/05/2012:30:00) MCV [81.0-99.0 fL] 94.6 fL (07/05/2012) MCH [27.0-31.0 pg] 31.0 pg (07/05/2012:00) MCHC [32.0-36.0 g/dL] 32.8 g/dL (07/05/201200) RDW [11.5-14.5 %] 13.3 % (07/05/2012:00) Platelet [133-450 K/CMM] 234 K/CMM (07/05/2012:) MPV [7.4-10.4 fL] 9.5 fL (07/05/2012) Segs [45.0-75.0 %] 34.4 % *LOW* (07/05/2012) Lymphocytes [20.0-40.0 %] 51.0 % *HI* (07/05/2012) Monocytes [2.0-12.0 %] 11.1 % (07/05/2012:00) Eosinophils [0.0-4.0 %] 2.9 % (07/05/2012:) Basophils [0.0-1.0 %] 0.6 % (07/05/2012:) Segs-Bands # [1.5-8.1 K/CMM] 2.4 K/CMM (07/05/2012:00) Lymphocytes # [1.0-5.5 K/CMM] 3.6 K/CMM (07/05/2012:00) Monocytes # [0.0-0.8 K/CMM] 0.8 K/CMM (07/05/2012:) Eosinophils # [0.0-0.5 K/CMM] 0.2 K/CMM (07/05/201230:00) Basophils # [0.0-0.2 K/CMM] 0.0 K/CMM (07/05/2012 09:30:00) Procedures Procedures Date Related Diagnosis Excision of duodenal atresia 1 1at
--- OUTSIDE RECORDS SUMMARY | 2018-12-30 16:39 | XMS REPORT | CCD ---
Author Author Auto Generated Organization [facility] Address Unknown Phone Unavailable Care Team Providers Care Traveling Clerk Name Role Phone Haris Myers CP Dean Rashid RP Allergies, Adverse Reactions, Alerts Substance Reaction Status NKDA Active Problem List Condition Effective Dates Status Diabetes mellitus Active Hypercholesterolemia Active Hypothyroidism Active lump right breast Active
--- OUTSIDE RECORDS SUMMARY | 2018-12-30 16:39 | XMS REPORT | Summary of Care ---
Author Author [facility] Organization [facility] Address Unknown Phone Unavailable Encounter JOHN More(COOPER) [id number] Date(s): 04/07/15 - 04/07/15 [facility] [address] [place] [address]- Discharge Disposition: Home Attending Physician: Deirdre Bhakta DO Referring Physician: [...]
--- OUTSIDE RECORDS SUMMARY | 2018-12-30 16:39 | XMS REPORT | CCD ---
Author Author Auto Generated Organization [facility] Address Unknown Phone Unavailable Care Team Providers Care Journeyman Operator Assistant Name Role Phone ElviZayDeirdre funk RP Allergies, Adverse Reactions, Alerts Substance Reaction Status NKDA Active Problem List Condition Effective Dates Status Diabetes mellitus Active Hypercholesterolemia Active Hypothyroidism Active lump right breast Active
--- OUTSIDE RECORDS SUMMARY | 2018-12-30 16:40 | XMS REPORT | Summary of Care ---
Author Author [facility] Organization [facility] Address Unknown Phone Unavailable Encounter HQ Argenis(COOPER) [id number] Date(s): 11/15/15 - 11/15/15 [facility] [address] [place] [address]- Discharge Disposition: Home Attending Physician: Deirdre Bhakta [...]
--- OUTSIDE RECORDS SUMMARY | 2018-12-30 16:40 | XMS REPORT | Summary of Care ---
Author Author [facility] Organization [facility] Address Unknown Phone Unavailable Encounter HQ Matty_chetna(COOPER) [id number] Date(s): 04/18/16 - 04/18/16 [facility] [address] [place] [address]- Discharge Disposition: Home or Self Care Attending [...]
[2018-12-30] MEDS ORDERED: SODIUM CHLORIDE 0.9% 1000ML 1,000 ML IV STA (16:43)
[2018-12-30 17:45] LABS: BILIRUBIN,URINE SMALL (NEGATIVE); CLARITY,URINE SL CLOUDY (CLEAR); COLOR,URINE YELLOW (YELLOW); KETONES,URINE 1+ (NEGATIVE); LEUKOCYTE ESTERASE ,URINE TRACE (NEGATIVE); NITRITE,URINE NEGATIVE (NEGATIVE); PROTEIN,URINE DIPSTICK TRACE (NEGATIVE); URINE UROBILINOGEN 0.2 mg/dL (0.2 - 1)
[2018-12-30 17:51] LABS: BASOPHILS # (AUTO) 0.1 (0.0-0.1); BASOPHILS % 0.7 % (0.0-1.0); EOSINOPHILS # (AUTO) 0.1 (0.0-0.4); EOSINOPHILS % 1.5 % (0.0-6.0); HEMATOCRIT 41.5 % (34.2-44.1); HEMOGLOBIN 13.9 g/dL (12.0-16.0); LYMPHOCYTES # (AUTO) 1.7 (1.0-3.2); LYMPHOCYTES % 23.2 % (18.0-39.1); MEAN CORPUSCULAR HGB CONC 33.5 g/dL (31-35); MEAN CORPUSCULAR VOLUME 92.6 fL (81-99); MONOCYTES # (AUTO) 0.7 (0.2-0.8); MONOCYTES % 9.9 % (4.4-11.3); NEUTROPHILS # (AUTO) 4.6 (2.1-6.9); NEUTROPHILS % 64.3 % (38.7-80.0); PLATELET COUNT 238 x10e3/uL (140-360); RED BLOOD COUNT 4.48 x10e6/uL (3.6-5.1); RED CELL DISTRIBUTION WIDTH 11.9 % (11.7-14.4)
[2018-12-30 17:52] LABS: BACTERIA,URINE MODERATE /HPF; CALCIUM OXALATE CRYSTALS,UR MODERATE (FEW); EPITHELIAL CELLS,URINE FEW /LPF; RBC,URINE 0-5 /HPF (0-5); WBC,URINE (MAN) 0-5 /HPF (0-5)
[2018-12-30 17:53] LABS: AMORPHOUS SEDIMENT,URINE MODERATE (FEW); MUCUS,URINE MODERATE (RARE)
[2018-12-30 18:03] LABS: INR 0.95; PARTIAL THROMBOPLASTIN TIME 26.5 seconds (23.8-35.5); PROTHROMBIN TIME 13.2 seconds (11.9-14.5)
[2018-12-30 18:10] LABS: ALANINE AMINOTRANSFERASE 29 IU/L (0-55); ALBUMIN/GLOBULIN RATIO 1.3 (0.8-2.0); ALKALINE PHOSPHATASE 86 IU/L (40-150); ANION GAP 12.8 mmol/L (8-16); BLOOD UREA NITROGEN 12 mg/dL (7-26); BUN/CREATININE RATIO 12 (6-25); CALCIUM 9.8 mg/dL (8.4-10.2); CARBON DIOXIDE 27 mmol/L (22-29); CHLORIDE 100 mmol/L (98-107); CREATINE KINASE 69 IU/L (29-168); CREATININE, SERUM 1.04 mg/dL (0.57-1.11); EST GLOMERULAR FILTRATION RATE 52 ML/MIN (60-); GLUCOSE 90 mg/dL (74-118); POTASSIUM 3.8 mmol/L (3.5-5.1); SODIUM 136 mmol/L (136-145)
--- NOTE | 2018-12-30 20:46 | Diagnostic Imaging Report ---
EXAMINATION: CHEST 2 VIEWS INDICATION: Chest pain COMPARISON: None FINDINGS: PA and lateral views TUBES and LINES: None. LUNGS: Lungs are well inflated. Lungs are clear. There is no evidence of pneumonia or pulmonary edema. PLEURA: No pleural effusion or pneumothorax. HEART AND MEDIASTINUM: The cardiomediastinal silhouette is unremarkable. BONES AND SOFT TISSUES: No acute osseous lesion. Soft tissues are unremarkable. UPPER ABDOMEN: No free air under the diaphragm. IMPRESSION: No acute thoracic abnormality. Signed by: Trevor Ledesma MD on 12/30/2018 8:43 PM
[2018-12-30] MEDS ORDERED: ASPIRIN 81 MG CHEW TAB PO ONE (21:30)
[2018-12-30 23:30] LABS: CREATINE KINASE 83 IU/L (29-168)
== END 2018-12-31 00:35 | disposition home or self-care (01) ==
LOC: ER 16:36
DX: R07.89 Other chest pain (principal); E11.9 Type 2 diabetes mellitus without complications; E78.5 Hyperlipidemia, unspecified; E07.9 Disorder of thyroid, unspecified; F41.9 Anxiety disorder, unspecified; Z87.891 Personal history of nicotine dependence
CPT/HCPCS: 36415; 71046; 80053; 81001; 82550; 82553; 84484; 85025; 85610; 85730; 93005; 99284